=== PATIENT | male | born 1980 | race African-American/Black ===

== ENCOUNTER 2016-11-20 19:14 | Emergency (ER) | payer SELFPAY ==
[~2016-11-20] VITALS: Ht 185.4 cm; Wt 81.6 kg
[2016-11-20] MEDS ORDERED: LORazepam 1 MG TABLET PO ONE (19:45)
[2016-11-20] MEDS ORDERED: LORA-434 PO (20:45)
--- NOTE | 2016-11-20 20:45 | PHYS DOC ---
Past Medical History Past Medical History: Anxiety, Depression Additional Past Medical Histor: ptsd 2 incarceration, Past Surgical History: No Surgical History Alcohol Use: Occasionally Drug Use: Cocaine Adult General Chief Complaint Chief Complaint: SHORTNESS OF BREATH HPI HPI Patient is a 35 year old male who presents with anxiety. He states he has been feeling very anxious this evening due to stress. He feels like he is hyperventilating. He denies fevers/chills, cough, chest pain, lower extremity pain/swelling. He states he has PTSD previously taking remeron prescribed by [facility], but ran out of prescription. He used cocaine last week. he denies suicidal thoughts or plan. He would like to establish care with mental health. Review of Systems Review of Systems Constitutional: Denies fever or chills Eyes: Denies change in visual acuity HENT: Denies nasal congestion or sore throat Respiratory: Denies cough or shortness of breath Cardiovascular: Denies chest pain or edema GI: Denies abdominal pain, nausea, vomiting Musculoskeletal: Denies back pain or joint pain Integument: Denies rash or skin lesions Neurologic: Denies headache, focal weakness or sensory changes Current Medications Current Medications Current Medications Medications (Trade) Dose Ordered Sig/Alfonso Start Time Stop Time Status Last Admin Dose Admin Lorazepam (Ativan) 1 mg 1X ONCE 11/20/16 19:45 11/20/16 19:46 DC 11/20/16 19:47 1 MG Allergies Allergies Allergies Coded Allergies Type Severity Reaction Last Updated Verified No Known Drug Allergies 11/20/16 No Physical Exam Physical Exam Constitutional: Well developed, well nourished, no acute distress, non-toxic appearance. HENT: Normocephalic, atraumatic, bilateral external ears normal, oropharynx moist, nose normal. Eyes: conjunctiva normal, no discharge. Neck: supple, no stridor. Cardiovascular: RRR, no murmurs, no edema. Lungs & Thorax: LCTAB, no wheezing, no respiratory distress. Abdomen: soft, nontender, nondistended. Skin: Warm, dry, no erythema, no rash. Back: No tenderness. Extremities: No tenderness, no edema. Neurologic: Alert and oriented X 3, no focal deficits noted. Psychologic: Affect normal, judgement normal, mood normal. Current Patient Data Vital Signs Vital Signs Date Time Temp Pulse Resp B/P (MAP) Pulse Ox O2 Delivery O2 Flow Rate FiO2 11/20/16 21:14 55 15 163/83 (109) 98 Room Air 11/20/16 19:14 98.4 98.4 EKG EKG Interpreted by me: Normal sinus rhythm rate 66, no acute ST or T wave changes, normal intervals, no ectopy. [] Radiology/Procedures Radiology/Procedures Chest x-ray: Interpreted by me: No cardiomegaly, no infiltrate, no pneumothorax , diaphragmatic flattening and hyperinflation of lung goldman [] Course & Med Decision Making Course & Med Decision Making Pertinent Labs and Imaging studies reviewed. (See chart for details) The patient presents with anxiety. He complains of dyspnea, has normal oxygen saturation on room air. CXR unremarkable. He felt better after ativan. Recommend follow up with I as soon as possible, provided card with info. Gave 6 tablets of ativan to take as needed for severe anxiety at home. Come back for suicidal thoughts, severe chest pain or shortness of breath, or any otherwise worsening condition. Discharged home in stable condition. [] Dragon Disclaimer Dragon Disclaimer This electronic medical record was generated, in whole or in part, using a voice recognition dictation system. Departure Departure Impression: Primary Impression: Anxiety Additional Impression: Dyspnea Disposition: HOME, SELF-CARE Condition: STABLE Referrals: GUS NEWTON MD Patient Instructions: Anxiety and Panic Attacks, [id number] Additional Instructions: You were seen in the emergency department today for anxiety and shortness of breath. Your x-ray and EKG were normal. Please take the prescribed medication as needed for severe anxiety. No drinking alcohol or driving while taking this medication. Follow-up on Tuesday at [facility]. Please see attached information for contact and location. Come back for severe shortness of breath or chest pain , suicidal thoughts, any otherwise worsening condition. Scripts Lorazepam (ATIVAN) 1 Mg Tablet 1 MG PO DAILY Y for ANXIETY, #4 TAB Prov: ESAU BUSTAMANTE MD 11/20/16 Problem Qualifiers ESAU BUSTAMANTE MD Nov 20, 2016 20:45
[2016-11-20 21:14] VITALS: BP 163/83
--- NOTE | 2016-11-21 07:17 | EKG ---
[facility] [address] [place] [address] Test Date: 2016-11-20 Test Time: 19:37:02 Pat Name: CORTES PELAYO Department: Room: Gender: M [employer]: : 1980 Requested By: ESAU BUSTAMANTE Order Number: [id number] Reading MD: Measurements Intervals [place] Rate: 66 P: 66 ND: 136 QRS: 62 QRSD: 88 T: 49 QT: 412 QTc: 434 Interpretive Statements SINUS RHYTHM LEFT ATRIAL ABNORMALITY QRS(T) CONTOUR ABNORMALITY CONSIDER ANTEROSEPTAL MYOCARDIAL DAMAGE RI6.01 Unconfirmed report No previous ECG available for comparison
--- NOTE | 2016-11-21 07:50 | RAD ---
PA AND LATERAL CHEST RADIOGRAPH Clinical Indication: sob. Cough x1 week. Comparison: None. Findings: The cardiomediastinal silhouette is normal. Pulmonary vasculature is normal. The lungs are clear. No pleural effusion or pneumothorax is seen. There is no acute bone abnormality. IMPRESSION: No acute cardiopulmonary process.
== END 2016-11-20 21:25 | disposition home or self-care (01) ==
LOC: ER 19:14
DX: F41.9 Anxiety disorder, unspecified (principal); R06.00 Dyspnea, unspecified; F43.10 Post-traumatic stress disorder, unspecified; F32.9 Major depressive disorder, single episode, unspecified; F14.10 Cocaine abuse, uncomplicated
CPT/HCPCS: 71020; 93005; 99284